=== PATIENT | male | born 1980 | race African-American/Black ===

== ENCOUNTER 2016-12-09 12:14 | Emergency (ER) | payer MEDICARE ==
[2016-12-09] MEDS ORDERED: ONDANSETRON 4 MG TAB.RAPDIS PO ONE (12:37)
[2016-12-09] MEDS ORDERED: NORMAL SALINE 1000 ML 1,000 ML IV ONE (12:37)
--- NOTE | 2016-12-09 12:39 | ER Document Report ---
ED Medical Screen (RME) - General Chief Complaint: Abdominal Pain Stated Complaint: ABDOMINAL PAIN Mode of Arrival: Ambulatory Information source: Patient Notes: This is a 36-year-old male who is HIV positive who presents with severe abdominal pain that began at about 11:30 last night after the pain began he then had multiple episodes of vomiting and diarrhea all night. He states he cannot tolerate PO fluids and he feels he is dehydrated. No fevers or chills. No known sick contacts. He states that his most recent viral load was undetectable and he reports compliance with his HIV meds. I have greeted and performed a rapid initial assessment of this patient. A comprehensive ED assessment and evaluation of the patient, analysis of test results and completion of the medical decision making process will be conducted by additional ED providers. TRAVEL OUTSIDE OF THE [place] IN LAST 30 DAYS: No - Related Data Allergies/Adverse Reactions: No Known Allergies Allergy (Verified 07/22/12 16:51) Past Medical History - Past Medical History Cardiac Medical History: Reports: Hx Hypertension Denies: Hx Atrial Fibrillation, Hx Coronary Artery Disease Pulmonary Medical History: Denies: Hx Asthma Neurological Medical History: Denies: Hx Cerebrovascular Accident Endocrine Medical History: Denies: Hx Diabetes Mellitus Type 2 Renal/ Medical History: Denies: Hx End Stage Renal Disease, Hx Peritoneal Dialysis GI Medical History: Denies: Hx Cirrhosis, Hx Gastritis, Hx Gastroesophageal Reflux Disease Musculoskeltal Medical History: Denies Hx Fibromyalgia Skin Medical History: Denies Hx Cellulitis, Denies Hx MRSA Psychiatric Medical History: Denies: Hx Anxiety Infectious Medical History: Reports: Hx HIV Past Surgical History: Reports: Hx Appendectomy, Hx Bowel Surgery - Bowel Resection - Immunizations Hx Diphtheria, Pertussis, Tetanus Vaccination: Yes - 2010 Physical Exam - Vital signs Vitals: Temp Pulse Resp BP Pulse Ox 98.6 F 76 18 124/84 95 12/09/16 12:15 12/09/16 12:15 12/09/16 12:15 12/09/16 12:15 12/09/16 12:15 Course - Vital Signs Vital signs: Temp Pulse Resp BP Pulse Ox 98.9 F 74 14 131/98 H 97 12/09/16 18:28 12/09/16 18:28 12/09/16 18:28 12/09/16 18:28 12/09/16 18:28 - Laboratory Result Diagrams: 12/09/16 12:55 12/09/16 12:55 Laboratory results interpreted by me: 12/09/16 12/09/16 12/09/16 12:55 12:55 13:30 WBC 11.8 H Chloride 108 H Albumin 3.2 L Urine Protein >=500 H Urine Blood SMALL H Doctor's Discharge - Discharge Clinical Impression: Vomiting, Abdominal pain, Cough Condition: Stable Disposition: HOME, SELF-CARE Instructions: Abdominal Pain ([facility]), Antinausea Medication ([facility]), Intravenous ( IV) Fluids ([facility]), Oral Narcotic Medication ([facility]) Additional Instructions: Your labs and cat scan were normal today take the anti nausea med and pain med as needed clear liquids x 12h to rest the bowel, then advance as you can tolerate follow up with primary care as needed Prescriptions: Ondansetron HCl [Zofran 8 mg Tablet] 8 mg PO Q8HP PRN #20 tablet PRN Reason: Hydrocodone/Acetaminophen [[place] 5-325 mg Tablet] 1 tab PO Q4 PRN #20 tablet PRN Reason:
[2016-12-09] MEDS ORDERED: ONDANSETRON HCL INJ/PF 4 MG/2 ML SDV IV ONE (13:07)
[2016-12-09] MEDS ORDERED: MORPHINE SULFATE 10 MG/ML INJ IV ONE (13:07)
[2016-12-09 13:10] LABS: ABSOLUTE BASOPHILS # (AUTO) 0.1 10^3/uL (0.0-0.2); ABSOLUTE EOSINOPHILS # (AUTO) 0.2 10^3/uL (0.0-0.6); ABSOLUTE LYMPHOCYTES (AUTO) 4.2 10^3/uL (0.5-4.7); ABSOLUTE MONOCYTES (AUTO) 1.3 10^3/uL (0.1-1.4); EOSINOPHILS % (AUTO) 1.7 % (0-6); HEMATOCRIT 43.5 % (37.9-51.0); HEMOGLOBIN 15.4 g/dL (13.5-17.0); HGB HCT DIFFERENCE 2.7; LYMPHOCYTES % (AUTO) 35.6 % (13-45); MEAN CORPUSCULAR HEMOGLOBIN 30.1 pg (27.0-33.4); MEAN CORPUSCULAR HGB CONC 35.4 g/dL (32.0-36.0); MEAN CORPUSCULAR VOLUME 85 fl (80-97); RED BLOOD COUNT 5.11 10^6/uL (4.35-5.55); RED CELL DISTRIBUTION WIDTH 13.3 % (11.5-14.0); SEGMENTED NEUTROPHILS % (AUTO) 50.7 % (42-78); WHITE BLOOD COUNT 11.8 10^3/uL (4.0-10.5)
--- NOTE | 2016-12-09 13:13 | ER Document Report ---
ED GI/ - General Chief Complaint: Abdominal Pain Stated Complaint: ABDOMINAL PAIN Mode of Arrival: Ambulatory Notes: 36 yo HIV+ male c/o acute onset severe lower abdominal pain with vomiting and diarrhea since 2330 last pm. not tolerating any po. + hx/o SBO with surgery. TRAVEL OUTSIDE OF THE [place] IN LAST 30 DAYS: No - HPI Patient complains to provider of: Abdominal pain Onset: Yesterday Timing/Duration: Sudden, Persistent Quality of pain: Cramping, Sharp Pain Level: 4 Location: [facility], [facility] Adult Front & Back Diagram: 1 - pain Associated symptoms: Diarrhea, Vomiting. denies: Blood in emesis, Blood in stool, Fever Exacerbated by: Denies Relieved by: Denies Similar symptoms previously: Yes - says feels similar to bowel obstruction - Related Data Allergies/Adverse Reactions: No Known Allergies Allergy (Verified 07/22/12 16:51) Past Medical History - General Information source: Patient - Social History Smoking Status: Never Smoker Frequency of alcohol use: None Drug Abuse: None Lives with: Family Family History: Reviewed & Not Pertinent - Past Medical History Cardiac Medical History: Reports: Hx Hypertension Denies: Hx Atrial Fibrillation, Hx Coronary Artery Disease Pulmonary Medical History: Denies: Hx Asthma GI Medical History: Denies: Hx Gastroesophageal Reflux Disease Musculoskeltal Medical History: Denies Hx Fibromyalgia Skin Medical History: Denies Hx Cellulitis, Denies Hx MRSA Psychiatric Medical History: Denies: Hx Anxiety Infectious Medical History: Reports: Hx HIV Past Surgical History: Reports: Hx Appendectomy, Hx Bowel Surgery - Bowel Resection - Immunizations Hx Diphtheria, Pertussis, Tetanus Vaccination: Yes - 2010 Review of Systems - Review of Systems Constitutional: Chills. denies: Fever EENT: No symptoms reported Cardiovascular: No symptoms reported Respiratory: Cough Gastrointestinal: Abdominal pain, Nausea, Vomiting Genitourinary: No symptoms reported Male Genitourinary: No symptoms reported Musculoskeletal: No symptoms reported Skin: No symptoms reported Hematologic/Lymphatic: No symptoms reported Neurological/Psychological: No symptoms reported -: Yes All other systems reviewed and negative Physical Exam - Vital signs Vitals: Temp Pulse Resp BP Pulse Ox 98.6 F 76 18 124/84 95 12/09/16 12:15 12/09/16 12:15 12/09/16 12:15 12/09/16 12:15 12/09/16 12:15 Interpretation: Normal - General General appearance: Alert In distress: Mild - HEENT Head: Normocephalic, Atraumatic Eyes: Normal Pupils: PERRL - Respiratory Respiratory status: No respiratory distress Chest status: Nontender Breath sounds: Decreased air movement - bases Chest palpation: Normal - Cardiovascular Rhythm: Regular Heart sounds: Normal auscultation Murmur: No - Abdominal Inspection: Healed incision - healed midline Distension: No distension Bowel sounds: Normal Tenderness: Tender - RLQ, LLQ, Guarding. No: Rebound Organomegaly: No organomegaly - Back Back: Normal, Nontender - Extremities General upper extremity: Normal inspection, Nontender, Normal color, Normal ROM , Normal temperature General lower extremity: Normal inspection, Nontender, Normal color, Normal ROM , Normal temperature, Normal weight bearing. No: Josie's sign - Neurological Neuro grossly intact: Yes Cognition: Normal Orientation: AAOx4 [place] Coma Scale Eye Opening: Spontaneous [place] Coma Scale Verbal: Oriented [place] Coma Scale Motor: Obeys Commands [place] Coma Scale Total: 15 Speech: Normal Motor strength normal: LUE, RUE, LLE, RLE Sensory: Normal - Psychological Associated symptoms: Normal affect, Normal mood - Skin Skin Temperature: Warm Skin Moisture: Dry Skin Color: Normal Course - Re-evaluation Re-evalutation: 12/09/16 13:22 pt assessed. + abdominal tenderness. labs, IVF and xray ordered. requested mainside bed, no beds available at this time. will continue to assess. 12/09/16 14:04 labs unremarkable. + proteinuria. 12/09/16 14:49 AAS impression: borderline dilated loops of bowel within lower abdomen, few air- fluid levels. could represent an area of early obstruction vs ileus. will order abd CT. pt aware of results. more comfortable at this time. no vomiting. requesting something for his cough. will continue to monitor 12/09/16 17:27 pt tolerating contrast. still c/o dry cough. medicated with hydrocodone for cough. pt to CT via stretcher 12/09/16 18:08 CT no evidence of bowel obstruction. pt has had no vomiting while in ED. tolerated po. pt stable for discharge - Vital Signs Vital signs: Temp Pulse Resp BP Pulse Ox 98.6 F 77 19 136/95 H 97 12/09/16 12:15 12/09/16 15:45 12/09/16 15:45 12/09/16 15:45 12/09/16 15:45 - Laboratory Result Diagrams: 12/09/16 12:55 12/09/16 12:55 Laboratory results interpreted by me: 12/09/16 12/09/16 12/09/16 12:55 12:55 13:30 WBC 11.8 H Chloride 108 H Albumin 3.2 L Urine Protein >=500 H Urine Blood SMALL H Discharge - Discharge Clinical Impression: Cough Vomiting Qualifiers: Vomiting type: unspecified Vomiting Intractability: non-intractable Nausea presence: with nausea Qualified Code(s): R11.2 - Nausea with vomiting, unspecified Abdominal pain Qualifiers: Abdominal location: lower abdomen, unspecified Qualified Code(s): R10.30 - Lower abdominal pain, unspecified Condition: Stable Disposition: HOME, SELF-CARE Instructions: Abdominal Pain ([facility]), Antinausea Medication ([facility]), Intravenous ( IV) Fluids ([facility]), Oral Narcotic Medication ([facility]) Additional Instructions: Your labs and cat scan were normal today take the anti nausea med and pain med as needed clear liquids x 12h to rest the bowel, then advance as you can tolerate follow up with primary care as needed Prescriptions: Ondansetron HCl [Zofran 8 mg Tablet] 8 mg PO Q8HP PRN #20 tablet PRN Reason: Hydrocodone/Acetaminophen [[place] 5-325 mg Tablet] 1 tab PO Q4 PRN #20 tablet PRN Reason:
[2016-12-09 13:34] LABS: ALANINE AMINOTRANSFERASE 25 U/L (21-72); ALBUMIN 3.2 g/dL (3.5-5.0); ALKALINE PHOSPHATASE 69 U/L (38-126); ANION GAP 12 (5-19); ASPARTATE AMINO TRANSFERASE 24 U/L (17-59); BILIRUBIN,DIRECT 0.3 mg/dL (0.0-0.4); BLOOD UREA NITROGEN 16 mg/dL (7-20); CALCIUM 8.7 mg/dL (8.4-10.2); CARBON DIOXIDE 24 mmol/L (22-30); CHLORIDE 108 mmol/L (98-107); CREATININE RESULT 1.22 mg/dL (0.52-1.25); GLUCOSE 101 mg/dL (75-110); LIPASE 80.2 U/L (23-300); POTASSIUM 3.6 mmol/L (3.6-5.0); TOTAL PROTEIN 6.8 g/dL (6.3-8.2)
[2016-12-09 13:56] LABS: APPEARANCE,URINE SLIGHTLY-CLOUDY; BILIRUBIN,URINE NEGATIVE (NEGATIVE); GLUCOSE, URINE NEGATIVE (NEGATIVE); KETONES,URINE NEGATIVE (NEGATIVE); LEUKOCYTE ESTERASE,URINE NEGATIVE (NEGATIVE); NITRITE,URINE NEGATIVE (NEGATIVE); PROTEIN,URINE >=500 mg/dL (NEGATIVE); URINE SPECIFIC GRAVITY 1.022; UROBILINOGEN,URINE NEGATIVE mg/dL (<2.0)
[2016-12-09] MEDS ORDERED: NORMAL SALINE 1000 ML 1,000 ML IV PRN (14:05)
[2016-12-09] MEDS ORDERED: BENZONATATE 100 MG CAPSULE PO ONE (14:41)
[2016-12-09] MEDS ORDERED: HYDROCODONE/ACETAMINOPHEN 5-325 MG TABLET PO ONE (17:03)
[2016-12-09 18:31] VITALS: BP 131/98
== END 2016-12-09 18:28 | disposition home or self-care (01) ==
LOC: ER 12:14
DX: R05 Cough (principal); R10.30 Lower abdominal pain, unspecified; R11.2 Nausea with vomiting, unspecified; R19.7 Diarrhea, unspecified; R68.83 Chills (without fever); R80.9 Proteinuria, unspecified; I10 Essential (primary) hypertension; Z21 Asymptomatic human immunodeficiency virus [HIV] infection status
CPT/HCPCS: 99284; 96361; 96374; 96375; 36415; 83690; 85025; 80053; 81001; 87804; 74022; 74176; A9270 ×3; J2270; J2405; J7030; S0119

== ENCOUNTER 2017-05-07 07:17 | Emergency (ER) | payer MEDICARE ==
[2017-05-07] MEDS ORDERED: ASPIRIN 81 MG TABLET, CHEWABLE PO ONE (07:49)
[2017-05-07] MEDS ORDERED: AMLODIPINE BESYLATE 10 MG TABLET PO ONE (07:50)
--- NOTE | 2017-05-07 07:52 | ER Document Report ---
ED General - General Chief Complaint: Chest Pain Stated Complaint: COUGH Time Seen by Provider: 05/07/17 07:40 Mode of Arrival: Ambulatory Information source: Patient Notes: Patient presents complaining of cough and cold symptoms for the past 3 days. Patient states he developed chest pain 2 days ago. Patient states the pain yesterday was off and on although became persistent today at 630. Patient states that cough does not affect his chest pain symptoms. Patient states that he did vomit one time after gagging with his cough. Patient denies any fever. Patient does have a history of HIV but states he has no detectable viral load. TRAVEL OUTSIDE OF THE [place] IN LAST 30 DAYS: No - HPI Onset/Duration: Persistent Pain Level: 4 Associated symptoms: Chest pain, Nonproductive cough, Vomiting - x1, Sinus pain/ drainage. denies: Diarrhea, Fever, Nausea, Shortness of breath Exacerbated by: Denies Relieved by: Denies Similar symptoms previously: No Recently seen / treated by doctor: No - Related Data Allergies/Adverse Reactions: No Known Allergies Allergy (Verified 05/07/17 07:21) Past Medical History - General Information source: Patient - Social History Smoking Status: Current Every Day Smoker Frequency of alcohol use: None Drug Abuse: Marijuana Occupation: none Family History: Reviewed & Not Pertinent - Past Medical History Cardiac Medical History: Reports: Hx Hypertension Denies: Hx Atrial Fibrillation, Hx Coronary Artery Disease Pulmonary Medical History: Denies: Hx Asthma Neurological Medical History: Denies: Hx Cerebrovascular Accident Endocrine Medical History: Denies: Hx Diabetes Mellitus Type 2 Renal/ Medical History: Denies: Hx End Stage Renal Disease, Hx Peritoneal Dialysis GI Medical History: Denies: Hx Cirrhosis, Hx Gastritis, Hx Gastroesophageal Reflux Disease Musculoskeltal Medical History: Denies Hx Fibromyalgia Skin Medical History: Denies Hx Cellulitis, Denies Hx MRSA Psychiatric Medical History: Denies: Hx Anxiety Infectious Medical History: Reports: Hx HIV Past Surgical History: Reports: Hx Appendectomy, Hx Bowel Surgery - Bowel Resection - Immunizations Hx Diphtheria, Pertussis, Tetanus Vaccination: Yes - 2010 Review of Systems - Review of Systems Constitutional: No symptoms reported. denies: Fever EENT: Nose congestion, Sinus pressure Cardiovascular: Chest pain. denies: Dizziness Respiratory: Cough. denies: Short of breath Gastrointestinal: Vomiting. denies: Abdominal pain, Nausea Genitourinary: No symptoms reported Male Genitourinary: No symptoms reported Musculoskeletal: No symptoms reported. denies: Back pain Skin: No symptoms reported Hematologic/Lymphatic: No symptoms reported Neurological/Psychological: No symptoms reported Physical Exam - Vital signs Vitals: Temp Pulse Resp BP Pulse Ox 98.9 F 83 17 173/130 H 97 05/07/17 07:19 05/07/17 07:19 05/07/17 07:19 05/07/17 07:19 05/07/17 07:19 - General General appearance: Appears well, Alert In distress: None - HEENT Head: Normocephalic, Atraumatic Eyes: Normal Conjunctiva: Normal Nasal: Clear rhinorrhea Mouth/Lips: Normal Mucous membranes: Normal Pharynx: Normal Neck: Normal, Supple. No: Lymphadenopathy - Respiratory Respiratory status: No respiratory distress Chest status: Nontender Breath sounds: Normal Chest palpation: Normal. No: Tender - Cardiovascular Rhythm: Regular Heart sounds: S1 appreciated, S2 appreciated Murmur: No - Abdominal Inspection: Normal Distension: No distension Bowel sounds: Normal Tenderness: Nontender Organomegaly: No organomegaly - Back Back: Normal, Nontender. No: CVA tenderness - Extremities General upper extremity: Normal inspection, Normal ROM General lower extremity: Normal inspection, Normal ROM - Neurological Neuro grossly intact: Yes Cognition: Normal [place] Coma Scale Eye Opening: Spontaneous [place] Coma Scale Verbal: Oriented [place] Coma Scale Motor: Obeys Commands [place] Coma Scale Total: 15 - Psychological Associated symptoms: Normal affect, Normal mood - Skin Skin Temperature: Warm Skin Moisture: Dry Skin Color: Normal Course - Re-evaluation Re-evalutation: 05/07/17 09:[address] Gallardo regarding patient presentation. Does recommend obtaining a second troponin, given the timing of onset of patient's symptoms and EKG findings. 05/07/17 10:00 pt updated regarding plan of care. 05/07/17 10:50 RN states that pt eloped. Pt had gone to the bathroom and another pt walked in on him, upsetting him. Pt was seen to walk out and drive away. - Vital Signs Vital signs: Temp Pulse Resp BP Pulse Ox 98.7 F 85 16 132/84 H 94 05/07/17 10:25 05/07/17 10:25 05/07/17 10:25 05/07/17 10:30 09/22/17 10:25 - Laboratory Result Diagrams: 05/07/17 08:08 05/07/17 08:08 Laboratory results interpreted by me: 05/07/17 05/07/17 05/07/17 08:08 08:08 08:10 MCHC 36.1 H Seg Neutrophils % 38.9 L Monocytes % 13.6 H Creatine Kinase 214 H Albumin 2.9 L Urine Protein >=500 H Urine Blood SMALL H Labs- Entire Visit 05/07/17 05/07/17 05/07/17 08:08 08:08 08:08 WBC 10.3 RBC 5.30 Hgb 16.2 Hct 44.9 MCV 85 MCH 30.5 MCHC 36.1 H RDW 13.0 Plt Count 215 Seg Neutrophils % 38.9 L Lymphocytes % 43.3 Monocytes % 13.6 H Eosinophils % 3.3 Basophils % 0.9 Absolute Neutrophils 4.0 Absolute Lymphocytes 4.5 Absolute Monocytes 1.4 Absolute Eosinophils 0.3 Absolute Basophils 0.1 Sodium 141.5 Potassium 4.0 Chloride 106 Carbon Dioxide 30 Anion Gap 6 BUN 12 Creatinine 1.08 Est GFR ( Amer) > 60 Est GFR (Non-Af Amer) > 60 Glucose 89 Calcium 8.6 Total Bilirubin 0.5 Direct Bilirubin 0.3 Indirect Bilirubin Not Reportable Neonat Total Bilirubin Not Reportable AST 19 ALT 23 Alkaline Phosphatase 72 Creatine Kinase 214 H CK-MB (CK-2) 0.59 Troponin I < 0.012 Total Protein 6.6 Albumin 2.9 L Lipase 95.0 Urine Color Urine Appearance Urine pH Ur Specific [place] Urine Protein Urine Glucose (UA) Urine Ketones Urine Blood Urine Nitrite Urine Bilirubin Urine Urobilinogen Ur Leukocyte Esterase Urine WBC (Auto) Urine RBC (Auto) Squamous Epi Cells Auto Urine Ascorbic Acid Urine Opiates Screen Urine Methadone Screen Ur Barbiturates Screen Ur Phencyclidine Scrn Ur Amphetamines Screen U Benzodiazepines Scrn Urine Cocaine Screen U Marijuana (THC) Screen 05/07/17 05/07/17 08:10 08:10 WBC RBC Hgb Hct MCV MCH MCHC RDW Plt Count Seg Neutrophils % Lymphocytes % Monocytes % Eosinophils % Basophils % Absolute Neutrophils Absolute Lymphocytes Absolute Monocytes Absolute Eosinophils Absolute Basophils Sodium Potassium Chloride Carbon Dioxide Anion Gap BUN Creatinine Est GFR ( Amer) Est GFR (Non-Af Amer) Glucose Calcium Total Bilirubin Direct Bilirubin Indirect Bilirubin Neonat Total Bilirubin AST ALT Alkaline Phosphatase Creatine Kinase CK-MB (CK-2) Troponin I Total Protein Albumin Lipase Urine Color YELLOW Urine Appearance CLEAR Urine pH 6.0 Ur Specific [place] 1.009 Urine Protein >=500 H Urine Glucose (UA) NEGATIVE Urine Ketones NEGATIVE Urine Blood SMALL H Urine Nitrite NEGATIVE Urine Bilirubin NEGATIVE Urine Urobilinogen NEGATIVE Ur Leukocyte Esterase NEGATIVE Urine WBC (Auto) 0 Urine RBC (Auto) 5 Squamous Epi Cells Auto <1 Urine Ascorbic Acid NEGATIVE Urine Opiates Screen NEGATIVE Urine Methadone Screen NEGATIVE Ur Barbiturates Screen NEGATIVE Ur Phencyclidine Scrn NEGATIVE Ur Amphetamines Screen NEGATIVE U Benzodiazepines Scrn NEGATIVE Urine Cocaine Screen NEGATIVE U Marijuana (THC) Screen UNCONFIRMED POSITIVE - Diagnostic Test Radiology reviewed: Reports reviewed Discharge - Discharge Clinical Impression: Upper respiratory infection Qualifiers: URI type: unspecified URI Qualified Code(s): J06.9 - Acute upper respiratory infection, unspecified Chest pain Qualifiers: Chest pain type: unspecified Qualified Code(s): R07.9 - Chest pain, unspecified Disposition: ELOPED
[2017-05-07 08:32] LABS: APPEARANCE,URINE CLEAR; BILIRUBIN,URINE NEGATIVE (NEGATIVE); GLUCOSE, URINE NEGATIVE (NEGATIVE); KETONES,URINE NEGATIVE (NEGATIVE); LEUKOCYTE ESTERASE,URINE NEGATIVE (NEGATIVE); NITRITE,URINE NEGATIVE (NEGATIVE); PROTEIN,URINE >=500 mg/dL (NEGATIVE); URINE SPECIFIC GRAVITY 1.009; UROBILINOGEN,URINE NEGATIVE mg/dL (<2.0)
--- NOTE | 2017-05-07 08:35 | RADIOLOGY REPORT (SQ) ---
EXAM DESCRIPTION: CHEST PA/LAT COMPLETED DATE/TIME: 05/07/2017 8:26 am REASON FOR STUDY: cp COMPARISON: 08/04/2016 EXAM PARAMETERS: NUMBER OF VIEWS: two views TECHNIQUE: Digital Frontal and Lateral radiographic views of the chest acquired. RADIATION DOSE: NA LIMITATIONS: none FINDINGS: LUNGS AND PLEURA: No opacities, masses or pneumothorax. No pleural effusion. MEDIASTINUM AND HILAR STRUCTURES: No masses or contour abnormalities. HEART AND VASCULAR STRUCTURES: Heart normal size. No evidence for failure. BONES: No acute findings. HARDWARE: None in the chest. OTHER: No other significant finding. IMPRESSION: NO SIGNIFICANT RADIOGRAPHIC FINDING IN THE CHEST. TECHNICAL DOCUMENTATION: JOB ID: [id number] [employer]- All Rights Reserved
[2017-05-07 08:41] LABS: ALANINE AMINOTRANSFERASE 23 U/L (21-72); ALBUMIN 2.9 g/dL (3.5-5.0); ALKALINE PHOSPHATASE 72 U/L (38-126); ANION GAP 6 (5-19); ASPARTATE AMINO TRANSFERASE 19 U/L (17-59); BILIRUBIN,DIRECT 0.3 mg/dL (0.0-0.4); BILIRUBIN,TOTAL 0.5 mg/dL (0.2-1.3); BLOOD UREA NITROGEN 12 mg/dL (7-20); CALCIUM 8.6 mg/dL (8.4-10.2); CARBON DIOXIDE 30 mmol/L (22-30); CHLORIDE 106 mmol/L (98-107); CREATINE KINASE 214 U/L (55-170); CREATININE RESULT 1.08 mg/dL (0.52-1.25); GLUCOSE 89 mg/dL (75-110); SODIUM 141.5 mmol/L (137-145); TOTAL PROTEIN 6.6 g/dL (6.3-8.2)
[2017-05-07 08:43] LABS: ABSOLUTE BASOPHILS # (AUTO) 0.1 10^3/uL (0.0-0.2); ABSOLUTE EOSINOPHILS # (AUTO) 0.3 10^3/uL (0.0-0.6); ABSOLUTE LYMPHOCYTES (AUTO) 4.5 10^3/uL (0.5-4.7); ABSOLUTE MONOCYTES (AUTO) 1.4 10^3/uL (0.1-1.4); BASOPHILS % (AUTO) 0.9 % (0-2); EOSINOPHILS % (AUTO) 3.3 % (0-6); HEMATOCRIT 44.9 % (37.9-51.0); HEMOGLOBIN 16.2 g/dL (13.5-17.0); HGB HCT DIFFERENCE 3.7; LYMPHOCYTES % (AUTO) 43.3 % (13-45); MEAN CORPUSCULAR HEMOGLOBIN 30.5 pg (27.0-33.4); MEAN CORPUSCULAR HGB CONC 36.1 g/dL (32.0-36.0); MEAN CORPUSCULAR VOLUME 85 fl (80-97); MONOCYTES % (AUTO) 13.6 % (3-13); SEGMENTED NEUTROPHILS % (AUTO) 38.9 % (42-78); WHITE BLOOD COUNT 10.3 10^3/uL (4.0-10.5)
[2017-05-07 08:44] LABS: URINE BARBITURATES SCREEN NEGATIVE; URINE METHADONE SCREEN NEGATIVE; URINE OPIATES LOW NEGATIVE; URINE PHENCYCLIDINE SCREEN NEGATIVE
[2017-05-07 08:53] LABS: CREATINE KINASE MB 0.59 ng/mL (<4.55)
[2017-05-07 08:54] LABS: TROPONIN I < 0.012 ng/mL
[2017-05-07 10:30] VITALS: BP 132/84
--- NOTE | 2017-05-07 19:36 | EKG REPORT ---
SEVERITY:- ABNORMAL ECG - SINUS RHYTHM LEFT VENTRICULAR HYPERTROPHY ST ELEV, PROBABLE NORMAL EARLY REPOL PATTERN : Confirmed by: Lalit eRhman MD 07-May-2017 19:35:23
== END 2017-05-07 10:47 | disposition left against medical advice (07) ==
LOC: ER 07:17
DX: J06.9 Acute upper respiratory infection, unspecified (principal); R05 Cough; R07.9 Chest pain, unspecified; J34.89 Other specified disorders of nose and nasal sinuses; F17.200 Nicotine dependence, unspecified, uncomplicated; I10 Essential (primary) hypertension; Z21 Asymptomatic human immunodeficiency virus [HIV] infection status; Z53.29 Procedure and treatment not carried out because of patient's decision for other reasons
CPT/HCPCS: 93005; 99284; 36415; 82553; 82550; 83690; 85025; 80053; 81001; 84484; 80307; 71020; 93010; A9270 ×2

== ENCOUNTER 2017-07-07 14:35 | Emergency (ER) | payer MEDICARE ==
--- NOTE | 2017-07-07 16:39 | ER Document Report ---
ED General - General Chief Complaint: Foot Pain Stated Complaint: FOOT PAIN Time Seen by Provider: 07/07/17 16:06 Mode of Arrival: Ambulatory Information source: Patient Notes: 36-year-old male with recent aortic dissection HIV presents with complaints of left foot swelling. Patient notes he is on Eliquis and believes that this is just a fluid buildup in the leg denies any pain TRAVEL OUTSIDE OF THE [place] IN LAST 30 DAYS: No - HPI Onset: This morning Onset/Duration: Sudden Quality of pain: No pain Severity: Mild Pain Level: Denies Associated symptoms: Leg swelling Exacerbated by: Denies Relieved by: Denies Similar symptoms previously: No Recently seen / treated by doctor: Yes - Related Data Allergies/Adverse Reactions: No Known Allergies Allergy (Verified 05/07/17 07:21) Past Medical History - Social History Smoking Status: Former Smoker Cigarette use (# per day): No Chew tobacco use (# tins/day): No Smoking Education Provided: No Frequency of alcohol use: None Drug Abuse: None Family History: Reviewed & Not Pertinent Patient has suicidal ideation: No Patient has homicidal ideation: No - Past Medical History Cardiac Medical History: Reports: Hx Hypertension Denies: Hx Atrial Fibrillation, Hx Coronary Artery Disease Pulmonary Medical History: Denies: Hx Asthma Neurological Medical History: Denies: Hx Cerebrovascular Accident Endocrine Medical History: Denies: Hx Diabetes Mellitus Type 2 Renal/ Medical History: Denies: Hx End Stage Renal Disease, Hx Peritoneal Dialysis GI Medical History: Denies: Hx Cirrhosis, Hx Gastritis, Hx Gastroesophageal Reflux Disease Musculoskeltal Medical History: Denies Hx Fibromyalgia Skin Medical History: Denies Hx Cellulitis, Denies Hx MRSA Psychiatric Medical History: Denies: Hx Anxiety Infectious Medical History: Reports: Hx HIV Past Surgical History: Reports: Hx Appendectomy, Hx Bowel Surgery - Bowel Resection, Hx Cardiac Surgery - Immunizations Hx Diphtheria, Pertussis, Tetanus Vaccination: Yes - 2010 Review of Systems - Review of Systems Notes: REVIEW OF SYSTEMS: CONSTITUTIONAL : Denies fever, chills, or sweats. Denies recent illness. EENT: Denies eye, ear, throat, or mouth pain or symptoms. Denies nasal or sinus congestion or discharge. Denies throat, tongue, or mouth swelling or difficulty swallowing. CARDIOVASCULAR: Denies chest pain. Denies palpitations or racing or irregular heart beat. Left ankle edema RESPIRATORY: Denies cough, cold, or chest congestion. Denies shortness of breath, difficulty breathing, or wheezing. GASTROINTESTINAL: Denies abdominal pain or distention. Denies nausea, vomiting , or diarrhea. Denies blood in vomitus, stools, or per rectum. Denies black, tarry stools. Denies constipation. GENITOURINARY: Denies difficulty urinating, painful urination, burning, frequency, blood in urine, or discharge. MUSCULOSKELETAL: Denies back or neck pain or stiffness. Denies joint pain or swelling. SKIN: Denies rash, lesions or sores. HEMATOLOGIC : Denies easy bruising or bleeding. LYMPHATIC: Denies swollen, enlarged glands. NEUROLOGICAL: Denies confusion or altered mental status. Denies passing out or loss of consciousness. Denies dizziness or lightheadedness. Denies headache. Denies weakness or paralysis or loss of use of either side. Denies problems with gait or speech. Denies sensory loss, numbness, or tingling. Denies seizures. PSYCHIATRIC: Denies anxiety or stress. Denies depression, suicidal ideation, or homicidal ideation. ALL OTHER SYSTEMS REVIEWED AND NEGATIVE. Dictation was performed using [employer] voice recognition software PHYSICAL EXAMINATION: GENERAL: Well-appearing, well-nourished and in no acute distress. HEAD: Atraumatic, normocephalic. EYES: Pupils equal round and reactive to light, extraocular movements intact, sclera anicteric, conjunctiva are normal. ENT: Nares patent, oropharynx clear without exudates. Moist mucous membranes. NECK: Normal range of motion, supple without lymphadenopathy LUNGS: Breath sounds clear to auscultation bilaterally and equal. No wheezes rales or rhonchi. HEART: Regular rate and rhythm without murmurs ABDOMEN: Soft, nontender, nondistended abdomen. No guarding, no rebound. No masses appreciated. Musculoskeletal: Left foot edema pulses are intact NEUROLOGICAL: Cranial nerves grossly intact. Normal speech, normal gait. Normal sensory, motor exams PSYCH: Normal mood, normal affect. SKIN: Surgical incisions on abdomen noted Physical Exam - Vital signs Vitals: Temp Pulse Resp BP Pulse Ox 98.5 F 103 H 18 133/79 H 99 07/07/17 14:47 07/07/17 14:47 07/07/17 14:47 07/07/17 14:47 07/07/17 14:47 Course - Re-evaluation Re-evalutation: 07/07/17 16:39 There is no calf tenderness, however even though the patient is on Eliquis there is always a possibility of a DVT, ultrasound is pending at this time 07/07/17 19:48 U/s noted ot dvt, pt has no other signs of chf, he has no sob, no chest pain, findings and my cocnerns and differentials have all been discussed with the patient , i will have him follow up with his primary care for further evaluation and care but is stable at this time After performing a Medical Screening Examination, I estimate there is LOW risk for RUPTURED ESOPHAGUS, PNEUMOTHORAX, PULMONARY EMBOLISM, ACUTE CORONARY SYNDROME, OR THORACIC AORTIC DISSECTION, thus I consider the discharge disposition reasonable. I have reevaluated this patient multiple times and no significant life threatening changes are noted. The patient and I have discussed the diagnosis and risks, and we agree with discharging home with close follow-up. We also discussed returning to the Emergency Department immediately if new or worsening symptoms occur. We have discussed the symptoms which are most concerning (e.g., bloody sputum, worsening pain or shortness of breath) that necessitate immediate return. - Vital Signs Vital signs: Temp Pulse Resp BP Pulse Ox 98.3 F 101 H 15 145/88 H 95 07/07/17 17:59 07/07/17 17:59 07/07/17 17:59 07/07/17 17:59 07/07/17 17:59 - Diagnostic Test Radiology reviewed: Image reviewed, Reports reviewed - No DVT Discharge - Discharge Clinical Impression: Edema of left foot Condition: Stable Disposition: HOME, SELF-CARE Instructions: Edema, Peripheral ([facility]), Neuropathy ([facility]) Additional Instructions: Follow up with your physician tomorrow for further care or return to the ED IMMEDIATELY if symptoms worsen or new concerns occur. If you cannot afford to follow up with your primary care physician a list of low cost clinics have been provided at the end of your discharge papers as well. Prescriptions: Gabapentin 300 mg PO BID #40 capsule Forms: Return to Work
[2017-07-07 18:10] VITALS: BP 145/88
--- NOTE | 2017-07-07 22:45 | XCELERA REPORT ---
[address] [address] Lower Extremity Venous Evaluation Name: GEOFFREY HARRIS JR Age: 36 yrs Gender: Male : 1980 Patient Status: Preadmit Patient Location: ER Study Date: 07/07/2017 05:12 PM Procedure: Color flow and duplex imaging of the veins of the left lower extremity as well as the right Common Femoral vein. Reason For Study: left lower extremity edema Ordering Physician: MAYRA BRICE Performed By: Precious Minor Right Sided Venous Evaluation The right common femoral vein is fully compressible. Spontaneous and phasic flow is present in the right common femoral vein. Left Sided Venous Evaluation Normal vessel filling wall to wall, compression and augmentation as well as Colour flow down to the infrageniculate veins. Interpretation Summary No duplex evidence of DVT or obstruction in the left lower extremity nor in the right Common Femoral vein. : AMYRA BRICE > Jose Armando Landers
== END 2017-07-07 18:10 | disposition home or self-care (01) ==
LOC: ER 14:35
DX: R60.0 Localized edema (principal); M79.672 Pain in left foot; M79.89 Other specified soft tissue disorders; Z87.891 Personal history of nicotine dependence
CPT/HCPCS: 93971; 99284

== ENCOUNTER 2017-07-29 10:12 | Emergency (ER) | payer MEDICARE, MEDICAID ==
[2017-07-29] MEDS ORDERED: NORMAL SALINE 1000 ML 1,000 ML IV ONE ×2 (11:09→14:43)
--- NOTE | 2017-07-29 11:10 | ER Document Report ---
ED Medical Screen (RME) - General Chief Complaint: Nausea/Vomiting Stated Complaint: NAUSEA Time Seen by Provider: 07/29/17 11:07 Notes: Patient states he was just recently discharged from a 2 month stay at [facility] secondary to complications from a torn aorta. He presents now with severe abdominal pain and vomiting that started 2 days ago. TRAVEL OUTSIDE OF THE [place] IN LAST 30 DAYS: No - Related Data Allergies/Adverse Reactions: No Known Allergies Allergy (Verified 07/29/17 10:13) Past Medical History - Social History Chew tobacco use (# tins/day): No Frequency of alcohol use: None Drug Abuse: Marijuana - Past Medical History Cardiac Medical History: Reports: Hx Hypertension Denies: Hx Atrial Fibrillation, Hx Coronary Artery Disease Pulmonary Medical History: Denies: Hx Asthma Neurological Medical History: Denies: Hx Cerebrovascular Accident Endocrine Medical History: Denies: Hx Diabetes Mellitus Type 2 Renal/ Medical History: Denies: Hx End Stage Renal Disease, Hx Peritoneal Dialysis GI Medical History: Denies: Hx Cirrhosis, Hx Gastritis, Hx Gastroesophageal Reflux Disease Musculoskeltal Medical History: Denies Hx Fibromyalgia Skin Medical History: Denies Hx Cellulitis, Denies Hx MRSA Psychiatric Medical History: Denies: Hx Anxiety Infectious Medical History: Reports: Hx HIV Past Surgical History: Reports: Hx Appendectomy, Hx Bowel Surgery - Bowel Resection, Hx Cardiac Surgery - Immunizations Hx Diphtheria, Pertussis, Tetanus Vaccination: Yes - 2010 Physical Exam - Vital signs Vitals: Temp Pulse Resp BP Pulse Ox 98.9 F 107 H 18 111/69 97 07/29/17 10:41 07/29/17 10:41 07/29/17 10:41 07/29/17 10:41 07/29/17 10:41 Course - Vital Signs Vital signs: Temp Pulse Resp BP Pulse Ox 98.9 F 107 H 18 111/69 97 07/29/17 10:41 07/29/17 10:41 07/29/17 10:41 07/29/17 10:41 07/29/17 10:41
[2017-07-29] MEDS ORDERED: ONDANSETRON HCL INJ/PF 4 MG/2 ML SDV IV ONE (11:38)
[2017-07-29 11:48] LABS: HEMATOCRIT 27.9 % (37.9-51.0); HEMOGLOBIN 9.4 g/dL (13.5-17.0); HGB HCT DIFFERENCE 0.3; MEAN CORPUSCULAR HGB CONC 33.6 g/dL (32.0-36.0); MEAN CORPUSCULAR VOLUME 77 fl (80-97); RED BLOOD COUNT 3.62 10^6/uL (4.35-5.55); RED CELL DISTRIBUTION WIDTH 20.2 % (11.5-14.0); WHITE BLOOD COUNT 24.4 10^3/uL (4.0-10.5)
[2017-07-29] MEDS ORDERED: MORPHINE SULFATE 10 MG/ML INJ IV ONE ×4 (11:50→16:08)
[2017-07-29 12:06] LABS: ALANINE AMINOTRANSFERASE 30 U/L (21-72); ALBUMIN 2.8 g/dL (3.5-5.0); ALKALINE PHOSPHATASE 128 U/L (38-126); ANION GAP 9 (5-19); ASPARTATE AMINO TRANSFERASE 31 U/L (17-59); BILIRUBIN,DIRECT 0.8 mg/dL (0.0-0.4); BLOOD UREA NITROGEN 23 mg/dL (7-20); CALCIUM 8.7 mg/dL (8.4-10.2); CARBON DIOXIDE 30 mmol/L (22-30); CHLORIDE 95 mmol/L (98-107); CREATININE RESULT 1.19 mg/dL (0.52-1.25); GLUCOSE 124 mg/dL (75-110); POTASSIUM 4.4 mmol/L (3.6-5.0); TOTAL PROTEIN 7.5 g/dL (6.3-8.2)
[2017-07-29 12:08] LABS: BASOPHILS % (MANUAL) 0 % (0-2); EOSINOPHILS % (MANUAL) 0 % (0-6); LYMPHOCYTES % (MANUAL) 16 % (13-45); TOTAL CELLS COUNTED 100
[2017-07-29 12:10] LABS: ANISOCYTOSIS 2+; HYPOCHROMASIA 1+; MICROCYTOSIS SLIGHT; POIKILOCYTOSIS SLIGHT; ROULEAUX 2+; SCHISTOCYTES SLIGHT; TARGET CELLS 1+; TEAR DROP CELLS SLIGHT
--- NOTE | 2017-07-29 13:54 | RADIOLOGY REPORT (SQ) ---
EXAM DESCRIPTION: CTA CHEST; CTA ABDOMEN/PELVIS W WO COMPLETED DATE/TIME: 07/29/2017 12:54 pm REASON FOR STUDY: recent aortic dissection, n/v/abd pain to back COMPARISON: None. CONTRAST TYPE AND DOSE: contrast/concentration: Isovue 370.00 mg/ml; Total Contrast Delivered: 80.0 ml; Total Saline Delivered: 75.0 ml RENAL FUNCTION: Creatinine 1.2 TECHNIQUE: CT scan of the chest performed using helical scanning technique with dynamic intravenous contrast injection. Images reviewed with lung, soft tissue and bone windows. Reconstructed coronal a nd sagittal MPR images reviewed. Multiplanar imaging through the pulmonary arteries was also generat ed. All images stored on PACS. CT scan of the abdomen and pelvis performed with intravenous and without oral contrastusing helical s raman technique with dynamic intravenous contrast injection. Images reviewed with lung, soft tissu e and bone windows. Reconstructed coronal and sagittal MPR images reviewed. Delayed images for eval uation of the urinary system also acquired and evaluated. All images stored on PACS. All CT scanners at this facility use dose modulation, iterative reconstruction, and/or weight based d osing when appropriate to reduce radiation dose to as low as reasonably achievable (ALARA). [facility]: Dose Right [facility]: CareDose [facility]: Dose Right [facility]: Teradose 4D [facility]: Smart Technologies RADIATION DOSE: CT Rad equipment meets quality standard of care and radiation dose reduction techniq ues were employed. CTDIvol: 5.2 mGy. DLP: 252 mGy-cm. . LIMITATIONS: None. FINDINGS: The patient is post recent aortic stent graft placement. There are 2 grafts, 1 graft exte nds from ascending aorta proximal to the great vessels through the arch and into the upper most abdom inal aorta just below the diaphragmatic hiatus. There is a gap between the thoracic and abdominal aortic stent grafts, 3 cm in length. Along the gap between the thoracic and abdominal aortic stent grafts, there is the origin of the SMA and origin of the celiac arteries. The abdominal aortic stent graft extends from just below the SMA through the infrarenal abdominal aor ta and down to the iliac bifurcation. There is right common iliac and external iliac artery stenting . The thoracic aortic stent graft has stenting of the proximal right brachiocephalic artery, proximal l eft common carotid artery, and proximal left subclavian artery. In the field of view of, no dissecti on of these vessels is seen. On axial images 30 through 48, there is enhancement of the false lumen with contrast indicating a an endoleak. Proximal thoracic descending aorta measures 3.6 cm in greatest diameter. The mid and distal thoracic aorta is normal caliber, 2.6 cm in diameter without endoleak. Just distal to the thoracic graft, there is a contrast-enhancing aortic lumen outside the stent graft , which provides in flow to the celiac trunk. This lumen also provides in flow to the left renal art tyrone and SMA. At the level of this gap between the stent graft, the aorta measures 3.7 cm in greatest diameter. The celiac artery and superior mesenteric arteries are abnormal. 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 Dissection extends i nto the proximal celiac branches, best shown on axial series 3 images 109 through 114. 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 SMA findings are best shown o n the sagittal reconstruction series 206, images 48 through 52. At and distal to the renal arteries, the abdominal aorta is normal caliber, 2.8 cm in diameter. No definite bowel wall pneumatosis. Wedge-shaped infarct lower half right kidney, upper half left ki dney. These findings were discussed with Dayna Betancur in the emergency room, 1330 hours 07/29/2017. CHEST: LUNGS AND PLEURA: No opacities, nodules, masses. No pneumothorax. No effusions. HILAR AND MEDIASTINAL STRUCTURES: No identified masses or abnormal nodes. HEART AND VASCULAR STRUCTURES: As above. No pericardial effusion. Old sternotomy. No acute pulmona ry emboli. HARDWARE: As above THYROID AND OTHER SOFT TISSUES: Asymmetric thickening of the right pectoralis muscle, question intram uscular hemorrhage BONES: No significant finding. OTHER: No other significant finding. ABDOMEN AND PELVIS: LIVER: Normal size. No masses. No dilated ducts. SPLEEN: Normal size. No focal lesions. PANCREAS: No masses. No significant calcifications. No adjacent inflammation or peripancreatic fluid collections. Pancreatic duct not dilated. GALLBLADDER: No identified stones by CT criteria. No inflammatory changes to suggest cholecystitis. ADRENAL GLANDS: No significant masses or asymmetry. RIGHT KIDNEY AND URETER: Wedge-shaped area of decreased contrast enhancement in the right lower pole kidney likely an infarct. No cysts, stones, masses, or hydronephrosis. LEFT KIDNEY AND URETER: Wedge-shaped area decreased contrast enhancement in the left upper pole kidne y likely an infarct. No cysts, stones, masses, or hydronephrosis AORTA AND VESSELS: As above RETROPERITONEUM: No retroperitoneal hemorrhage is identified. BOWEL AND PERITONEAL CAVITY: No dilated bowel loops. No bowel wall pneumatosis. No gross obstructio n. No ascites APPENDIX: Not identified ABDOMINAL WALL: No masses. No hernias. BONES: No significant or acute findings. OTHER: No other significant finding. 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 Thoracic aorta measures 3.6 cm in diameter in this area. SMA and celiac artery dissection. True and false lumen are both opacifying in a gap between the dist al thoracic and proximal abdominal aortic stent grafts TECHNICAL DOCUMENTATION: JOB ID: [id number] Quality ID # [id number]: Final reports with documentation of one or more dose reduction techniques (e.g., Au tomated exposure control, adjustment of the mA and/or kV according to patient size, use of iterative reconstruction technique) 2010 [employer]- All Rights Reserved
[2017-07-29] MEDS ORDERED: METOCLOPRAMIDE HCL INJ/PF 10 MG/2 ML SDV IV ONE (14:36)
--- NOTE | 2017-07-29 14:43 | ER Document Report ---
ED GI/ - General Chief Complaint: Nausea/Vomiting Stated Complaint: NAUSEA Time Seen by Provider: 07/29/17 11:07 Mode of Arrival: Ambulatory Information source: Patient Notes: patient is a 36-year-old male with a recent history of aortic dissection. He spent 2 months at [facility] who presents to the ER today for abdominal pain radiating slightly into the back with nausea and vomiting 2 days. Patient states that he has not been able to hold anything down in 2 days. He states that it is the medication that they gave him a [facility] after his aortic dissection repair that makes him nauseated, however states that it has been worse over the past 2 days than normal. He does not know which medications may be causing his nausea. He has no nausea medication at home. He denies numbness or tingling in his feet Abnormal since the dissection. TRAVEL OUTSIDE OF THE [place] IN LAST 30 DAYS: No - Related Data Allergies/Adverse Reactions: No Known Allergies Allergy (Verified 07/29/17 10:13) Home Medications: Current Home Medications Apixaban [Eliquis] 2.5 mg PO BID 07/29/17 [History] Aspirin 81 mg PO DAILY 07/29/17 [History] Duloxetine HCl 20 mg PO DAILY 07/29/17 [History] Fludrocortisone Acetate 0.05 mg PO DAILY 07/29/17 [History] Labetalol HCl 600 mg PO Q12HP 07/29/17 [History] Mirtazapine 15 mg PO HSP PRN 07/29/17 [History] Pantoprazole Sodium [Protonix] 40 mg PO Q12H 07/29/17 [History] Raltegravir Potassium [Isentress] 400 mg PO BID 07/29/17 [History] Sucralfate [Carafate 1 gm Tablet] 1 gm PO Q8 07/29/17 [History] Past Medical History - General Information source: Patient - Social History Smoking Status: Former Smoker Chew tobacco use (# tins/day): No Frequency of alcohol use: None Drug Abuse: Marijuana Family History: Reviewed & Not Pertinent Patient has suicidal ideation: No Patient has homicidal ideation: No - Past Medical History Cardiac Medical History: Reports: Hx Hypertension Denies: Hx Atrial Fibrillation, Hx Coronary Artery Disease Pulmonary Medical History: Denies: Hx Asthma Neurological Medical History: Denies: Hx Cerebrovascular Accident Endocrine Medical History: Denies: Hx Diabetes Mellitus Type 2 Renal/ Medical History: Denies: Hx End Stage Renal Disease, Hx Peritoneal Dialysis GI Medical History: Denies: Hx Cirrhosis, Hx Gastritis, Hx Gastroesophageal Reflux Disease Musculoskeltal Medical History: Denies Hx Fibromyalgia Skin Medical History: Denies Hx Cellulitis, Denies Hx MRSA Psychiatric Medical History: Reports: Hx Depression - anxiety Denies: Hx Anxiety Infectious Medical History: Reports: Hx HIV Past Surgical History: Reports: Hx Abdominal Surgery - aortic surgery x3, Hx Appendectomy, Hx Bowel Surgery - Bowel Resection, Hx Cardiac Surgery - Immunizations Hx Diphtheria, Pertussis, Tetanus Vaccination: Yes - 2010 Review of Systems - Review of Systems Constitutional: No symptoms reported EENT: No symptoms reported Cardiovascular: See HPI Respiratory: No symptoms reported Gastrointestinal: See HPI Genitourinary: No symptoms reported Male Genitourinary: No symptoms reported Musculoskeletal: No symptoms reported Skin: No symptoms reported Hematologic/Lymphatic: See HPI Neurological/Psychological: No symptoms reported Physical Exam - Vital signs Vitals: Temp Pulse Resp BP Pulse Ox 98.9 F 107 H 18 111/69 97 07/29/17 10:41 07/29/17 10:41 07/29/17 10:41 07/29/17 10:41 07/29/17 10:41 - Notes Notes: PHYSICAL EXAMINATION: GENERAL: Mildly ill-appearing, but in no acute distress. HEAD: Atraumatic, normocephalic. EYES: Pupils equal round and reactive to light, extraocular movements intact, sclera anicteric, conjunctiva are normal. NECK: Normal range of motion, supple without lymphadenopathy LUNGS: CTAB and equal. No wheezes rales or rhonchi. HEART: tachycardic with regular rhythm without murmurs ABDOMEN: Soft, mild diffuse tenderness. No guarding, no rebound BACK: no vertebral tenderness, normal ROM GI/: no CVA tenderness EXTREMITIES: good pulses distally bilateral lower extremities, Normal range of motion, no pitting edema. No cyanosis. NEUROLOGICAL: Cranial nerves grossly intact. Normal sensory/motor exams. PSYCH: Normal mood, normal affect. SKIN: Warm, Dry, normal turgor, no rashes or lesions noted Course - Re-evaluation Re-evalutation: 07/29/17 15:25 patient has a white count of 24,000. 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 I did consult with vascular surgeon, Dr. Bauer, who states that all of this was exactly what they also saw on the CAT scan before they discharged him and is all stable. He states that there is no leak, but that he did not "put the graft there." He states that there is no reason for transfer at this time as all of this is his stable findings that have been unchanged since discharge from [facility]. At this time patient has received multiple pain medications and nausea medications, Dr. Harrison, hospitalist here has agreed to admit. - Vital Signs Vital signs: Temp Pulse Resp BP Pulse Ox 98.9 F 107 H 20 102/60 92 07/29/17 10:41 07/29/17 10:41 07/29/17 13:31 07/29/17 13:31 07/29/17 13:31 - Laboratory Result Diagrams: 07/29/17 11:25 07/29/17 11:25 Laboratory results interpreted by me: 07/29/17 07/29/17 07/29/17 11:25 11:25 14:41 WBC 24.4 H RBC 3.62 L Hgb 9.4 L Hct 27.9 L MCV 77 L MCH 26.0 L RDW 20.2 H Monocytes % (Manual) 15 H Abs Neuts (Manual) 16.8 H Abs Monocytes (Manual) 3.7 H Sodium 134.0 L Chloride 95 L BUN 23 H Glucose 124 H Direct Bilirubin 0.8 H Alkaline Phosphatase 128 H Albumin 2.8 L Urine Protein 100 H Urine Blood SMALL H Urine Urobilinogen 4.0 H Discharge - Discharge Clinical Impression: Intractable nausea and vomiting Qualifiers: Vomiting type: unspecified Qualified Code(s): R11.2 - Nausea with vomiting, unspecified Abdominal pain Qualifiers: Abdominal location: generalized Qualified Code(s): R10.84 - Generalized abdominal pain Condition: Stable Disposition: ADMITTED INPATIENT Admitting Provider: Hospitalist - Dr. Harrison Unit Admitted: Telemetry
[2017-07-29 15:06] LABS: APPEARANCE,URINE CLEAR; BILIRUBIN,URINE NEGATIVE (NEGATIVE); GLUCOSE, URINE NEGATIVE (NEGATIVE); KETONES,URINE NEGATIVE (NEGATIVE); LEUKOCYTE ESTERASE,URINE NEGATIVE (NEGATIVE); NITRITE,URINE NEGATIVE (NEGATIVE); PROTEIN,URINE 100 mg/dL (NEGATIVE); URINE SPECIFIC GRAVITY 1.042
[2017-07-29 16:14] VITALS: BP 120/71
[2017-07-29] MEDS ORDERED: ACETAMINOPHEN 325 MG TABLET PO ONE (16:37)
== END 2017-07-29 16:50 | disposition short-term general hospital (02) ==
LOC: ER 10:12 → UNDOADMIN 15:10 → EH 15:10 → ER 16:46
DX: N28.0 Ischemia and infarction of kidney (principal); I72.8 Aneurysm of other specified arteries; R11.2 Nausea with vomiting, unspecified; R10.84 Generalized abdominal pain; M62.89 Other specified disorders of muscle; I10 Essential (primary) hypertension; Z87.891 Personal history of nicotine dependence; Z21 Asymptomatic human immunodeficiency virus [HIV] infection status; Z90.49 Acquired absence of other specified parts of digestive tract; Z98.890 Other specified postprocedural states
CPT/HCPCS: 96376; 99285; 96361; 96374; 96375; 36415; 83690; 85025; 80053; 81001; 71275; 74174; A9270; J2270; J2405; J7030